=== PATIENT | male | born 1975 | race American Indian/Alaskan Native ===

== ENCOUNTER 2019-02-27 08:07 | Inpatient (IN) | payer SELFPAY ==
[2019-02-27] MEDS ORDERED: NACL 0.9% 1000 ML 1,000 ML ONE (08:13)
[2019-02-27] MEDS ORDERED: ZOFRAN ONE (08:26)
[2019-02-27] MEDS ORDERED: VITAMIN B-1 100 MG, FOLVITE 1 MG, INFUVITE 10 ML in NACL 0.9% 1000 ML 1,000 ML IV ONE (08:35)
[2019-02-27 08:38] LABS: Basophils % (Auto) 0.8 % (0.0-1.8); Eosinophils % (Auto) 0.2 % (0.0-4.3); Hematocrit 38.1 % (35.5-45.6); Lymphocytes # (Auto) 1.3 K/mm3 (1.2-5.4); Lymphocytes % (Auto) 42.1 % (13.4-35.0); Mean Corpuscular HGB Conc 34 % (32-34); Mean Corpuscular Volume 85 fl (84-94); Monocytes # (Auto) 0.3 K/mm3 (0.0-0.8); Platelet Count 199 K/mm3 (140-440); Red Cell Distribution Width 15.6 % (13.2-15.2)
[2019-02-27] MEDS ORDERED: ZOFRAN IV ONE ×2 (08:42→10:23)
[2019-02-27 08:49] LABS: INR 1.11 (0.87-1.13); Partial Thromboplastin Time 28.6 Sec. (24.2-36.6)
--- NOTE | 2019-02-27 08:55 | XRay Report ---
PORTABLE CHEST INDICATION: Chest pain. COMPARISON: 03/26/2009 FINDINGS: Portable, frontal chest radiograph suggests slightly poorer inspiration with mild exaggerated cardiomediastinal silhouette/possible mild cardiomegaly. Pulmonary arterial hypertension not excluded. Right hemidiaphragm approximately 3 cm higher than the left. No pleural effusions or CHF. Mild bony degenerative changes. EKG leads. CONCLUSION: No acute chest process with few other findings, as described. Please correlate. Thank you for the opportunity to participate in this patient's care.
[2019-02-27 09:01] LABS: BUN/Creatinine Ratio 8; Blood Urea Nitrogen 7 mg/dL (9-20); Calcium 8.1 mg/dL (8.4-10.2); Hemolysis Index 6
[2019-02-27 09:02] LABS: Creatine Kinase MB 4.1 ng/mL (0.0-4.0)
[2019-02-27 09:06] LABS: Free T4 (Free Thyroxine) 0.89 ng/dL (0.76-1.46)
[2019-02-27] MEDS ORDERED: K-DUR PO ONE ×2 (10:15→21:00)
--- NOTE | 2019-02-27 10:49 | History and Physical Report ---
History of Present Illness Date of examination: 02/27/19 Medications and Allergies Allergies Allergy/AdvReac Type Severity Reaction Status Date / Time No Known Allergies Allergy Unverified 02/27/19 08:39 Active Meds: Active Medications Thiamine HCl 100 mg/ Folic Acid 1 mg/ Multivitamins/Minerals 10 ml/ Sodium Chloride 1,011.2 mls @ 250 mls/hr IV ONCE ONE Stop: 02/27/19 12:37 Last Admin: 02/27/19 09:13 Dose: 250 mls/hr Documented by: Exam - Constitutional Vitals: Temp Pulse Resp BP Pulse Ox 98.2 F 100 H 18 130/92 100 02/27/19 08:47 02/27/19 10:01 02/27/19 10:01 02/27/19 10:01 02/27/19 10:01 Results - Labs CBC & Chem 7: 02/27/19 08:26 02/27/19 08:26 Labs: Abnormal lab results 02/27/19 02/27/19 02/27/19 Range/Units 08:26 08:26 08:26 WBC 3.0 L (4.5-11.0) K/mm3 RDW 15.6 H (13.2-15.2) % Lymph % (Auto) 42.1 H (13.4-35.0) % [place] % (Auto) 9.0 H (0.0-7.3) % Seg Neutrophils # 1.5 L (1.8-7.7) K/mm3 PT 15.0 H (12.2-14.9) Sec. D-Dimer 1208.94 H (0-234) ng/mlDDU Sodium 148 H (137-145) mmol/L Potassium 3.1 L (3.6-5.0) mmol/L Chloride 107.3 H (98-107) mmol/L BUN 7 L (9-20) mg/dL Glucose 200 H (75-100) mg/dL Calcium 8.1 L (8.4-10.2) mg/dL Total Creatine Kinase (55-170) units/L CK-MB (CK-2) (0.0-4.0) ng/mL TSH (0.270-4.200) mlU/mL Plasma/Serum Alcohol (0-0.07) % 0402/27/19 02/27/19 Range/Units 08:26 08:26 08:26 WBC (4.5-11.0) K/mm3 RDW (13.2-15.2) % Lymph % (Auto) (13.4-35.0) % [place] % (Auto) (0.0-7.3) % Seg Neutrophils # (1.8-7.7) K/mm3 PT (12.2-14.9) Sec. D-Dimer (0-234) ng/mlDDU Sodium (137-145) mmol/L Potassium (3.6-5.0) mmol/L Chloride (98-107) mmol/L BUN (9-20) mg/dL Glucose (75-100) mg/dL Calcium (8.4-10.2) mg/dL Total Creatine Kinase 522 H (55-170) units/L CK-MB (CK-2) 4.1 H (0.0-4.0) ng/mL TSH 0.236 L (0.270-4.200) mlU/mL Plasma/Serum Alcohol 0.33 H (0-0.07) %
--- NOTE | 2019-02-27 11:40 | Emergency Department Report ---
ED Palpitations HPI - General Chief Complaint: Chest Pain Stated Complaint: CHEST PAIN Time Seen by Provider: 02/27/19 08:16 Source: EMS Mode of arrival: Stretcher Limitations: No Limitations - History of Present Illness Initial Comments: This is a 43 year old man who is transported via EMS found to have a heart rate of 180-190. He was given intranasal morphine and a nitroglycerin". He was not hypotensive in the field. He arrived with the continued tachycardia. The patient states "everything is wrong with me". He admits alcohol abuse and habitual use. He does not specifically state a history of cardiopulmonary disease or diabetes. He is a poor historian in general. He can tell me that he has not experienced a rapid heart rhythm such as he is today. He states the problem began this a.m. He complains of midsternal chest pain which does not radiate. It does not appear to be obviously pleuritic. He is not coughing. He is also not providing much history. He doesn't answer to the affirmative regarding fever or chills. He does admit persistent nausea. MD Complaint: rapid heart beat, "heart racing" - Related Data Allergies Allergy/AdvReac Type Severity Reaction Status Date / Time No Known Allergies Allergy Unverified 02/27/19 08:39 ED Review of Systems ROS: Stated complaint: CHEST PAIN Other details as noted in HPI Comment: Unobtainable due to pts medical conditions (limited probably secondary to alcohol intoxication) ED Past Medical Hx - Past Medical History Hx Hypertension: Yes - Surgical History Past Surgical History?: Yes Additional Surgical History: Bilateral foot - Social History Smoking Status: Current Every Day Smoker Substance Use Type: Alcohol ED Physical Exam - General Limitations: Altered Mental Status General appearance: alert, anxious, obese - Head Head exam: Present: atraumatic, normocephalic - Eye Eye exam: Present: normal appearance. Absent: scleral icterus - ENT ENT exam: Present: mucous membranes moist - Neck Neck exam: Present: normal inspection. Absent: tenderness, meningismus - Respiratory Respiratory exam: Present: normal lung sounds bilaterally. Absent: respiratory distress - Cardiovascular Cardiovascular Exam: Present: regular rate, tachycardia. Absent: systolic murmur, diastolic murmur, rubs, gallop - GI/Abdominal GI/Abdominal exam: Present: soft, normal bowel sounds. Absent: distended, tenderness, guarding, rebound, rigid - Rectal Rectal exam: Present: deferred - Extremities Exam Extremities exam: Present: normal inspection. Absent: calf tenderness - Back Exam Back exam: Present: normal inspection. Absent: CVA tenderness (R), CVA tenderness (L) - Neurological Exam Neurological exam: Present: alert, altered (somewhat but oriented), oriented X3, CN II-XII intact. Absent: motor sensory deficit - Psychiatric Psychiatric exam: Present: normal affect, anxious - Skin Skin exam: Present: warm, dry, intact, normal color. Absent: rash ED Course Vital Signs 02/27/19 02/27/19 02/27/19 08:07 08:16 08:31 Temperature Pulse Rate 180 H 112 H 112 H Respiratory 22 22 Rate Blood Pressure 80/62 Blood Pressure 118/82 [Left] O2 Sat by Pulse 97 100 Oximetry 02/27/19 02/27/19 02/27/19 08:47 10:01 10:54 Temperature 98.2 F Pulse Rate 112 H 100 H 94 H Respiratory 22 18 20 Rate Blood Pressure Blood Pressure 128/89 130/92 139/83 [Left] O2 Sat by Pulse 100 100 98 Oximetry - Reevaluation(s) Reevaluation #1: On arrival patient's blood pressure was in the 80s systolic. He was given 6 mg adenosine. This promptly terminated his super ventricular tachycardia. He ultimately stated that his chest pain had improved. He had persistent nausea and was given 2 doses of Zofran. He was found to be hypokalemic. He was found to have a significant elevated d-dimer. He was sent for a CT of the chest. This was read by the radiologist as within normal limits, no PE, no infiltrates, no evidence of congestive heart failure. 02/27/19 11:50 ED Medical Decision Making - Lab Data Result diagrams: 02/27/19 08:26 02/27/19 08:26 Laboratory Results - last 24 hr 02/27/19 02/27/19 02/27/19 08:26 08:26 08:26 WBC 3.0 L RBC 4.50 Hgb 13.0 Hct 38.1 MCV 85 MCH 29 MCHC 34 RDW 15.6 H Plt Count 199 Lymph % (Auto) 42.1 H [place] % (Auto) 9.0 H Eos % (Auto) 0.2 Baso % (Auto) 0.8 Lymph # 1.3 [place] # 0.3 Eos # 0.0 Baso # 0.0 Seg Neutrophils % 47.9 Seg Neutrophils # 1.5 L PT 15.0 H INR 1.11 APTT 28.6 D-Dimer 1208.94 H Sodium 148 H Potassium 3.1 L Chloride 107.3 H Carbon Dioxide 28 Anion Gap 16 BUN 7 L Creatinine 0.9 Estimated GFR > 60 BUN/Creatinine Ratio 8 Glucose 200 H Calcium 8.1 L Magnesium Total Creatine Kinase CK-MB (CK-2) CK-MB (CK-2) Rel Index Troponin T < 0.010 NT-Pro-B Natriuret Pep Lipase 32 TSH Free T4 Plasma/Serum Alcohol 02/27/19 02/27/19 02/27/19 08:26 08:26 08:26 WBC RBC Hgb Hct MCV MCH MCHC RDW Plt Count Lymph % (Auto) [place] % (Auto) Eos % (Auto) Baso % (Auto) Lymph # [place] # Eos # Baso # Seg Neutrophils % Seg Neutrophils # PT INR APTT D-Dimer Sodium Potassium Chloride Carbon Dioxide Anion Gap BUN Creatinine Estimated GFR BUN/Creatinine Ratio Glucose Calcium Magnesium 1.80 Total Creatine Kinase 522 H CK-MB (CK-2) 4.1 H CK-MB (CK-2) Rel Index 0.7 Troponin T NT-Pro-B Natriuret Pep < 5 Lipase TSH 0.236 L Free T4 0.89 Plasma/Serum Alcohol 0.33 H Laboratory Results - last 24 hr 02/27/19 02/27/19 02/27/19 08:26 08:26 08:26 WBC 3.0 L RBC 4.50 Hgb 13.0 Hct 38.1 MCV 85 MCH 29 MCHC 34 RDW 15.6 H Plt Count 199 Lymph % (Auto) 42.1 H [place] % (Auto) 9.0 H Eos % (Auto) 0.2 Baso % (Auto) 0.8 Lymph # 1.3 [place] # 0.3 Eos # 0.0 Baso # 0.0 Seg Neutrophils % 47.9 Seg Neutrophils # 1.5 L PT 15.0 H INR 1.11 APTT 28.6 D-Dimer 1208.94 H Sodium 148 H Potassium 3.1 L Chloride 107.3 H Carbon Dioxide 28 Anion Gap 16 BUN 7 L Creatinine 0.9 Estimated GFR > 60 BUN/Creatinine Ratio 8 Glucose 200 H Calcium 8.1 L Magnesium Total Creatine Kinase CK-MB (CK-2) CK-MB (CK-2) Rel Index Troponin T < 0.010 NT-Pro-B Natriuret Pep Lipase 32 TSH Free T4 Plasma/Serum Alcohol 02/27/19 02/27/19 02/27/19 08:26 08:26 08:26 WBC RBC Hgb Hct MCV MCH MCHC RDW Plt Count Lymph % (Auto) [place] % (Auto) Eos % (Auto) Baso % (Auto) Lymph # [place] # Eos # Baso # Seg Neutrophils % Seg Neutrophils # PT INR APTT D-Dimer Sodium Potassium Chloride Carbon Dioxide Anion Gap BUN Creatinine Estimated GFR BUN/Creatinine Ratio Glucose Calcium Magnesium 1.80 Total Creatine Kinase 522 H CK-MB (CK-2) 4.1 H CK-MB (CK-2) Rel Index 0.7 Troponin T NT-Pro-B Natriuret Pep < 5 Lipase TSH 0.236 L Free T4 0.89 Plasma/Serum Alcohol 0.33 H - EKG Data -: EKG Interpreted by [place] EKG shows normal: sinus rhythm Rate: tachycardia - EKG Data Interpretation: other (initial monitor strip was SVT over 180. After cardioversion left axis deviation and poor R-wave progression, no acute ischemic changes sinus rhythm) Critical Care Time: Yes Critical care time in (mins) excluding proc time.: 60 Critical care attestation.: If time is entered above; I have spent that time in minutes in the direct care of this critically ill patient, excluding procedure time. ED Disposition Clinical Impression: SVT (supraventricular tachycardia), Alcohol abuse, Hypokalemia, Elevated d- dimer, Low TSH level Chest pain Qualifiers: Chest pain type: unspecified Qualified Code(s): R07.9 - Chest pain, unspecified Leukopenia Qualifiers: Leukopenia type: other Qualified Code(s): D72.818 - Other decreased white blood cell count Disposition: 09 OP ADMIT IP TO THIS HOSP Is pt being admited?: Yes Does the pt Need Aspirin: Yes Condition: Stable Instructions: Chest Pain (ED) Referrals: CHERYL VASQUES MD [Primary Care Provider] - 3-5 Days Time of Disposition: 11:55
--- NOTE | 2019-02-27 11:53 | Cat Scan Report ---
CTA CHEST INDICATION: Chest pain, elevated d-dimer. COMPARISON: 06/30/[address] FINDINGS: Chest CTA performed following intravenous administration of 100 cc of Omnipaque 350. Rotational MIP's also obtained. Mild cardiomegaly may now be present. No effusions. No aortic aneurysm or dissection, to the extent assessed, though aortic luminal opacification suboptimal. Mild pulmonary arterial hypertension. No definite focal suspicious pulmonary arterial filling defects, to the extent assessed. Patent central airway. No size significant adenopathy. Normal imaged thyroid. Clear lungs except for stable 5 mm postinflammatory noncalcified right midlung fissural density peripherally, axial series 2, image 71, for which no further followup needed. Nonspecific distal esophageal mild wall prominence/thickening, not excluded for gastroesophageal reflux and/or hiatal hernia, amongst others. Right hemidiaphragm slightly higher than the left. Imaged upper abdomen demonstrates left hepatic lobe tip extending into the left upper quadrant. No other significant abnormality. Multilevel thoracic spine degenerative changes as spurring and slight vacuum disc phenomenon inferiorly. CONCLUSION: No acute chest CT abnormality with few incidental findings, including pulmonary arterial hypertension and new mild cardiomegaly since 2008, as described. Please correlate. Thank you for the opportunity to participate in this patient's care.
[2019-02-27] MEDS ORDERED: ASPIRIN PO ONE (11:56)
[2019-02-27] MEDS ORDERED: ATIVAN IV PRN (12:04)
[2019-02-27] MEDS ORDERED: ASPIRIN ONE (12:33)
[2019-02-27] MEDS ORDERED: ATIVAN ONE (12:49)
[2019-02-27] MEDS: ATIVAN IV PRN ×2 (12:51→18:22)
[2019-02-27 12:59] LABS: Mucus,Urine FEW /HPF
[2019-02-27 13:02] LABS: Bilirubin,Urine Negative (Negative); Color,Urine Straw (Yellow)
[2019-02-27 13:03] LABS: Blood,Urine Negative (Negative); Urobilinogen,Urine < 2.0 mg/dL (<2.0)
[2019-02-27 13:20] LABS: Amphetamine Screen,Urine PRESUMPTIVE NEGATIVE; Benzodiazepines Screen,Urine PRESUMPTIVE NEGATIVE; Cannabinoid Screen,Urine PRESUMPTIVE NEGATIVE; Cocaine Screen,Urine PRESUMPTIVE NEGATIVE; Methadone Screen,Urine PRESUMPTIVE NEGATIVE
[2019-02-27 13:36] LABS: Opiate Screen,Urine PRESUMPTIVE POSITIVE
[2019-02-27] MEDS ORDERED: ZOFRAN IV PRN (17:49)
[2019-02-27] MEDS: DILAUDID IV PRN ×2 (18:23→21:43)
[2019-02-27] MEDS ORDERED: PHENERGAN PR PRN (20:14)
[2019-02-27] MEDS ORDERED: TYLENOL PO PRN (20:14)
[2019-02-27] MEDS ORDERED: NON-FORMULARY (Amlodipine Besylate [Norvasc] 2.5 MG) PO SCH (20:30)
--- NOTE | 2019-02-27 20:30 | Event Note ---
Date: 02/27/19 See dictated history and physical in the reports Severe dehydration Hypokalemia EtOH dependence Supraventricular tachycardia versus sinus tachycardia
[2019-02-27] MEDS ORDERED: CALCIUM GLUCONATE 2,000 MG in NACL 0.9% 100 ML IV ONE (20:41)
--- NOTE | 2019-02-27 21:01 | History and Physical Report ---
CHIEF COMPLAINT: 1. Palpitations. 2. Dehydration. 3. Binge drinking for 1 week. HISTORY OF PRESENT ILLNESS: A 43-year-old male comes in for severe palpitations and dehydration. The patient called EMS and that his heart rate was in the 180-190s. The patient has been binge drinking for the last one week about a bottle of vodka, which is of 750 mL every day. The patient apparently did binge drinking 2-3 years ago. Does not drink on a regular basis. His problem is binge drinking. Also, midsternal chest pain. More so on taking a deep breath. Had some nausea. No vomiting. Epigastric discomfort present. No shortness of breath. Chest pain is about 4 on a 1-10 scale. More in the epigastric and lower sternal region. No diaphoresis. Palpitations present. PAST MEDICAL HISTORY: Significant for hypertension. PAST SURGICAL HISTORY: Bilateral foot surgery. SOCIAL HISTORY: Smokes every day, pack a day. Alcohol, he does binge drinking. Has been drinking for one week about a bottle of vodka. Last binge drinking episode was 2 years ago. FAMILY HISTORY: Hypertension. REVIEW OF SYSTEMS: Significant for feeling weak, dehydrated, palpitations, epigastric and lower sternal chest pain. No shortness of breath. Nausea present. No vomiting. Otherwise, review of systems negative. PHYSICAL EXAMINATION: VITAL SIGNS: On examination, initially his heart rate was 180 per minute, respiratory rate was 22, sats were 88%, initial blood pressure was 80/62, improved to 118/82. Heart rate also improved to 112 during my examination. HEENT: Unremarkable. Pupils equal and reactive. NECK: Supple, no lymphadenopathy, no thyromegaly. LUNGS: Clear to auscultation and percussion. Good air entry. CARDIOVASCULAR: S1, S2 heard. No gallop, no murmur, no rub. Apical impulse in left fifth intercostal space and midclavicular line. ABDOMEN: Soft and benign. No hepatosplenomegaly. No guarding, no rigidity. Hernial orifices are normal. Bowel sounds are normal. EXTREMITIES: Good pedal pulses. No pedal edema. CENTRAL NERVOUS SYSTEM: Alert and oriented x 4, nonfocal exam. LABORATORY DATA: Significant for a white count of 3000, hemoglobin of 13, hematocrit of 38.1, platelet count of 199,000. D-dimer 1208, INR is 1.11. Protime is 15. Sodium is 148, potassium is 3.1, BUN and creatinine is 7 and 0.9. Total CK is 522, CK-MB is 4.1. TSH is 0.236, free T4 is 0.89. Drug screen is positive for opiates. Plasma alcohol is 0.33. EKG shows sinus tachycardia, heart rate of 160 per minute. Chest CTA was negative. Chest x-ray, no acute findings. ASSESSMENT AND PLAN: 1. Chest pain, rule out myocardial infarction, chest pain protocol. I am more in favor of an acute gastritis secondary to binge drinking. We will get Lexiscan because of his age and because of the risk factors. 2. Hypotension, should correct with IV fluids. Binge drinking may be the cause of his hypotension. 3. Supraventricular tachycardia versus sinus tachycardia. I am more in favor of sinus tachycardia secondary to hypotension, dehydration and fluid depletion. IV fluids for now. 4. Hypertension. We will start the blood pressure medicines once the blood pressure is stable. 5. Hyponatremia. IV fluids for now. 6. Hypokalemia. IV fluids for now. 7. Magnesium deficiency. IV magnesium. 8. ETOH dependence. [facility] protocol initiated. 9. Acute gastritis, famotidine 20 mg IV b.i.d. initiated. 10. Deep venous thrombosis prophylaxis, Lovenox 40 mg subcutaneous daily. JOB# [id number] VSM/NTS
[2019-02-27] MEDS: ZOFRAN IV PRN (21:42)
[2019-02-27] MEDS: D5NS 1,000 ML IV SCH (21:46)
[2019-02-27] MEDS ORDERED: NORVASC PO SCH (22:00)
[2019-02-27] MEDS ORDERED: MAGNESIUM SULFATE 2GM/50ML 2 GM/50 ML BAG IV ONE (22:00)
[2019-02-28] MEDS: LOVENOX SUB-Q SCH ×2 (00:08→21:20)
[2019-02-28] MEDS: PEPCID IV SCH ×3 (00:08→21:20)
[2019-02-28] MEDS: SODIUM CHLORIDE FLUSH SYRINGE 10 ML IV SCH (00:10)
[2019-02-28] MEDS: ZESTRIL PO SCH ×3 (00:27→11:09)
[2019-02-28] MEDS: LOPRESSOR PO SCH ×5 (00:27→21:20)
[2019-02-28] MEDS: REGLAN IV PRN ×2 (00:41→12:10)
[2019-02-28] MEDS: APRESOLINE IV PRN ×4 (04:34→21:21)
[2019-02-28] MEDS: ZOFRAN IV PRN ×3 (04:35→21:20)
[2019-02-28 04:39] LABS: Basophils % (Auto) 0.5 % (0.0-1.8); Eosinophils % (Auto) 0.4 % (0.0-4.3); Hematocrit 38.4 % (35.5-45.6); Hemoglobin 12.7 gm/dl (11.8-15.2); Lymphocytes # (Auto) 1.2 K/mm3 (1.2-5.4); Lymphocytes % (Auto) 43.4 % (13.4-35.0); Mean Corpuscular HGB Conc 33 % (32-34); Mean Corpuscular Volume 85 fl (84-94); Monocytes # (Auto) 0.3 K/mm3 (0.0-0.8); Monocytes % (Auto) 11.2 % (0.0-7.3); Platelet Count 196 K/mm3 (140-440); Red Cell Distribution Width 15.5 % (13.2-15.2)
[2019-02-28 05:06] LABS: Alanine Aminotransferase 60 units/L (7-56); BUN/Creatinine Ratio 11; Blood Urea Nitrogen 10 mg/dL (9-20); Calcium 8.8 mg/dL (8.4-10.2); Hemolysis Index 7
[2019-02-28] MEDS ORDERED: NORVASC PO PRN (05:15)
[2019-02-28] MEDS: ATIVAN IV PRN ×3 (07:34→16:40)
[2019-02-28] MEDS ORDERED: LEXISCAN IV ONE ×2 (08:03→08:14)
[2019-02-28] MEDS: DILAUDID IV PRN ×2 (09:49→21:22)
--- NOTE | 2019-02-28 13:39 | Progress Note ---
Assessment and Plan Assessment and plan: --Alcoholic intoxication; present on admission; Continue supportive care, strongly advised to quit alcohol --Alcohol withdrawal symptoms; CIWA protocol Patient needs alcohol rehabilitation --Atypical chest pain; continue current cardiac medications Stress test on 03/02/2019 is stable --DVT prophylaxis; Lovenox --Morbid obesity; BMI 41.8, advised weight reduction and medically stable Closely monitor the patient and adjust the management as needed Plan of care reviewed with the patient and his nurse History Interval history: Patient seen and examined medical records reviewed Admitted with atypical chest pain and alcoholic intoxication Stress test was rescheduled as patient is started having withdrawal symptoms Patient complaints of generalized weakness, and tremulousness On CIWA protocol He denies chest pain or shortness of breath Vital signs reviewed Hospitalist Physical - Constitutional Vitals: Temp Pulse Resp BP Pulse Ox 98.2 F 81 20 178/110 95 02/28/19 09:50 02/28/19 09:56 02/28/19 09:58 02/28/19 11:08 02/28/19 09:50 General appearance: Present: no acute distress, other (tremulousness) - EENT Eyes: Present: PERRL, EOM intact - Neck Neck: Present: supple, normal ROM - Respiratory Respiratory effort: normal Respiratory: bilateral: diminished, negative: rales, rhonchi, wheezing - Cardiovascular Rhythm: regular Heart Sounds: Present: S1 & S2 - Extremities Extremities: no ischemia Extremity abnormal: edema - Abdominal General gastrointestinal: soft, non-tender, non-distended, normal bowel sounds - Integumentary Integumentary: Present: clear, warm - Psychiatric Psychiatric: appropriate mood/affect, cooperative - Neurologic Neurologic: moves all extremities Results - Labs CBC & Chem 7: 02/28/19 03:30 02/28/19 03:30 Labs: Laboratory Last Values WBC 2.7 K/mm3 (4.5-11.0) L 02/28/19 03:30 RBC 4.50 M/mm3 (3.65-5.03) 02/28/19 03:30 Hgb 12.7 gm/dl (11.8-15.2) 02/28/19 03:30 Hct 38.4 % (35.5-45.6) 02/28/19 03:30 MCV 85 fl (84-94) 02/28/19 03:30 MCH 28 pg (28-32) 02/28/19 03:30 MCHC 33 % (32-34) 02/28/19 03:30 RDW 15.5 % (13.2-15.2) H 02/28/19 03:30 Plt Count 196 K/mm3 (140-440) 02/28/19 03:30 Lymph % (Auto) 43.4 % (13.4-35.0) H 02/28/19 03:30 [place] % (Auto) 11.2 % (0.0-7.3) H 02/28/19 03:30 Eos % (Auto) 0.4 % (0.0-4.3) 02/28/19 03:30 Baso % (Auto) 0.5 % (0.0-1.8) 02/28/19 03:30 Lymph # 1.2 K/mm3 (1.2-5.4) 02/28/19 03:30 [place] # 0.3 K/mm3 (0.0-0.8) 02/28/19 03:30 Eos # 0.0 K/mm3 (0.0-0.4) 02/28/19 03:30 Baso # 0.0 K/mm3 (0.0-0.1) 02/28/19 03:30 Seg Neutrophils % 44.5 % (40.0-70.0) 02/28/19 03:30 Seg Neutrophils # 1.2 K/mm3 (1.8-7.7) L 02/28/19 03:30 PT 15.0 Sec. (12.2-14.9) H 02/27/19 08:26 INR 1.11 (0.87-1.13) 02/27/19 08:26 APTT 28.6 Sec. (24.2-36.6) 02/27/19 08:26 D-Dimer 1208.94 ng/mlDDU (0-234) H 02/27/19 08:26 Sodium 144 mmol/L (137-145) 02/28/19 03:30 Potassium 4.0 mmol/L (3.6-5.0) D 02/28/19 03:30 Chloride 104.0 mmol/L (98-107) 02/28/19 03:30 Carbon Dioxide 27 mmol/L (22-30) 02/28/19 03:30 Anion Gap 17 mmol/L 02/28/19 03:30 BUN 10 mg/dL (9-20) 02/28/19 03:30 Creatinine 0.9 mg/dL (0.8-1.5) 02/28/19 03:30 Estimated GFR > 60 ml/min 02/28/19 03:30 BUN/Creatinine Ratio 11 % 02/28/19 03:30 Glucose 116 mg/dL (75-100) H 02/28/19 03:30 Hemoglobin A1c 5.5 % (4-6) 02/27/19 20:24 Calcium 8.8 mg/dL (8.4-10.2) 02/28/19 03:30 Magnesium 1.80 mg/dL (1.7-2.3) 02/27/19 14:40 Total Bilirubin 0.50 mg/dL (0.1-1.2) 02/28/19 03:30 AST 35 units/L (5-40) 02/28/19 03:30 ALT 60 units/L (7-56) H 02/28/19 03:30 Alkaline Phosphatase 64 units/L (35-129) 02/28/19 03:30 Total Creatine Kinase 522 units/L (55-170) H 02/27/19 08:26 CK-MB (CK-2) 4.1 ng/mL (0.0-4.0) H 02/27/19 08:26 CK-MB (CK-2) Rel Index 0.7 (0-4) 02/27/19 08:26 Troponin T < 0.010 ng/mL (0.00-0.029) 02/28/19 03:30 NT-Pro-B Natriuret Pep < 5 pg/mL (0-450) 02/27/19 08:26 Total Protein 6.4 g/dL (6.3-8.2) 02/28/19 03:30 Albumin 4.0 g/dL (3.9-5) 02/28/19 03:30 Albumin/Globulin Ratio 1.7 % 02/28/19 03:30 Lipase 32 units/L (13-60) 02/27/19 08:26 TSH 0.236 mlU/mL (0.270-4.200) L 02/27/19 08:26 Free T4 0.89 ng/dL (0.76-1.46) 02/27/19 08:26 Urine Color Straw (Yellow) 02/27/19 Unknown Urine Turbidity Clear (Clear) 02/27/19 Unknown Urine pH 7.0 (5.0-7.0) 02/27/19 Unknown Ur Specific [place] 1.005 (1.003-1.030) 02/27/19 Unknown Urine Protein 30 mg/dl mg/dL (Negative) 02/27/19 Unknown Urine Glucose (UA) Negative mg/dL (Negative) 02/27/19 Unknown Urine Ketones Negative mg/dL (Negative) 02/27/19 Unknown Urine Blood Negative (Negative) 02/27/19 Unknown Urine Nitrite Negative (Negative) 02/27/19 Unknown Ur Reducing Substances Not Reportable 02/27/19 Unknown Urine Bilirubin Negative (Negative) 02/27/19 Unknown Urine Ictotest Not Reportable 02/27/19 Unknown Urine Urobilinogen < 2.0 mg/dL (<2.0) 02/27/19 Unknown Ur Leukocyte Esterase Negative (Negative) 02/27/19 Unknown Urine WBC (Auto) 1.0 /HPF (0.0-6.0) 02/27/19 Unknown Urine RBC (Auto) 2.0 /HPF (0.0-6.0) 02/27/19 Unknown Urine Mucus Few /HPF 02/27/19 Unknown Urine Opiates Screen Presumptive positive 02/27/19 Unknown Urine Methadone Screen Presumptive negative 02/27/19 Unknown Ur Barbiturates Screen Presumptive negative 02/27/19 Unknown Ur Phencyclidine Scrn Presumptive negative 02/27/19 Unknown Ur Amphetamines Screen Presumptive negative 02/27/19 Unknown U Benzodiazepines Scrn Presumptive negative 02/27/19 Unknown Urine Cocaine Screen Presumptive negative 02/27/19 Unknown U Marijuana (THC) Screen Presumptive negative 02/27/19 Unknown Drugs of Abuse Note Disclamer 02/27/19 Unknown Plasma/Serum Alcohol 0.33 % (0-0.07) H 02/27/19 08:26 Active Medications - Current Medications Current Medications: Generic Name Dose Route Start Last Admin Trade Name Freq PRN Reason Stop Dose Admin Acetaminophen 650 mg 02/27/19 20:14 Tylenol PO Q4H PRN Pain MILD(1-3)/Fever >100.5/LINDSAY Amlodipine Besylate 10 mg 02/28/19 05:15 Norvasc PO QDAY PRN Hypertension Enoxaparin Sodium 40 mg 02/27/19 22:00 02/28/19 00:08 Lovenox SUB-Q 40 mg QDAY@2200 ANDRESSA Administration Famotidine 20 mg 02/27/19 22:00 02/28/19 11:09 Pepcid IV 20 mg BID ANDRESSA Administration Hydralazine HCl 5 mg 02/28/19 03:21 02/28/19 11:20 Apresoline IV 5 mg Q6HR PRN Administration Hypertension Hydromorphone HCl 0.5 mg 02/27/19 17:48 02/28/19 09:49 Dilaudid IV 0.5 mg Q3H PRN Administration Pain , Severe (7-10) Dextrose/Sodium Chloride 1,000 mls @ 100 mls/hr 02/27/19 21:00 02/27/19 21:46 D5ns IV 100 mls/hr DIRECT ANDRESSA Administration Lisinopril 10 mg 02/27/19 21:00 02/28/19 11:09 Zestril PO 10 mg QDAY ANDRESSA Administration Lorazepam 1 mg 02/27/19 12:04 02/28/19 12:10 Ativan IV 1 mg Q1HR PRN Administration CIWA-Ar 8-15 Lorazepam 2 mg 02/27/19 12:04 Ativan IV Q15MIN PRN CIWA-Ar >25 Metoclopramide HCl 10 mg 02/27/19 20:14 02/28/19 12:10 Reglan IV 10 mg Q6H PRN Administration Nausea And Vomiting Metoprolol Tartrate 12.5 mg 02/27/19 22:00 02/28/19 11:08 Lopressor PO 12.5 mg BID ANDRESSA Administration Ondansetron HCl 4 mg 02/27/19 20:14 02/28/19 11:09 Zofran IV 4 mg Q8H PRN Administration Nausea And Vomiting Oxycodone/Acetaminophen 1 tab 02/27/19 20:14 Percocet 5/325 PO Q6H PRN Pain, Moderate (4-6) Promethazine HCl 25 mg 02/27/19 20:14 Phenergan [place] Q6H PRN N/V IF NPO AND NO IV ACCESS Sodium Chloride 10 ml 02/27/19 22:00 02/28/19 00:10 Sodium Chloride Flush Syringe 10 Ml IV 10 ml BID ANDRESSA Administration Sodium Chloride 10 ml 02/27/19 20:14 Sodium Chloride Flush Syringe 10 Ml IV PRN PRN LINE FLUSH
[2019-02-28] MEDS: D5NS 1,000 ML IV SCH (18:22)
[2019-02-28] MEDS: SODIUM CHLORIDE FLUSH SYRINGE 10 ML IV PRN ×2 (21:20→21:25)
[2019-03-01] MEDS: REGLAN IV PRN (00:39)
[2019-03-01] MEDS: ATIVAN IV PRN (00:39)
[2019-03-01] MEDS: PERCOCET 5/325 PO PRN ×2 (03:41→08:34)
[2019-03-01] MEDS: SODIUM CHLORIDE FLUSH SYRINGE 10 ML IV PRN (03:44)
[2019-03-01] MEDS: SODIUM CHLORIDE FLUSH SYRINGE 10 ML IV SCH ×2 (03:45→09:30)
[2019-03-01 08:05] VITALS: BP 185/111
[2019-03-01 09:00] LABS: BUN/Creatinine Ratio 10; Blood Urea Nitrogen 8 mg/dL (9-20); Calcium 8.7 mg/dL (8.4-10.2); Hemolysis Index 14
[2019-03-01] MEDS: ZESTRIL PO SCH (09:28)
[2019-03-01] MEDS: LOPRESSOR PO SCH (09:29)
[2019-03-01] MEDS: PEPCID IV SCH (09:30)
--- NOTE | 2019-03-01 11:24 | Consultation ---
History of Present Illness - Reason for Consult Consult date: 03/01/19 Reason for consult: Mental health Evaluation Requesting physician: VERNA EVANS - Chief Complaint Chief complaint: 'I have a lot going on" - History of Present Psychiatric Illness 43 y.o. AA male who presented to the ER for tachycardia and ETOH. Psychiatry was consulted to see the patient for ETOH. Today the patient is calm and cooperative during the assessment. He stated that he is dealing with life stressors with family that has caused him to be depressed. He stated that he is consuming more alcohol (etoh) than usual to self medicate. He acknowledged that he has a hx of alcohol abuse (etoh) for several years. He stated that he has always dealt with depression in the past. He denies ever being treated for depression. He denies any previous suicide attempts when asked. He rate his depression 5/10, with 10 being the worse. He denies SI/HI's and AVH's. He denies a poor appetite and erratic sleep. He would not confirm or deny recreational drug use. Medications and Allergies Allergies Allergy/AdvReac Type Severity Reaction Status Date / Time No Known Allergies Allergy Unverified 02/27/19 08:39 Home Medications Medication Instructions Recorded Confirmed Last Taken Type Amlodipine Besylate [Norvasc] 2.5 mg PO DAILY 02/27/19 02/27/19 02/27/19 07:00 History Lisinopril [Zestril TAB] 10 mg PO QDAY 02/27/19 02/27/19 02/27/19 07:00 History Active Meds: Active Medications Acetaminophen (Tylenol) 650 mg PO Q4H PRN PRN Reason: Pain MILD(1-3)/Fever >100.5/LINDSAY Amlodipine Besylate (Norvasc) 10 mg PO QDAY PRN PRN Reason: Hypertension Last Admin: 03/01/19 03:41 Dose: 10 mg Documented by: Enoxaparin Sodium (Lovenox) 40 mg SUB-Q QDAY@2200 [facility] Last Admin: 02/28/19 21:20 Dose: 40 mg Documented by: Famotidine (Pepcid) 20 mg IV BID [facility] Last Admin: 03/01/19 09:30 Dose: Not Given Documented by: Hydralazine HCl (Apresoline) 5 mg IV Q6HR PRN PRN Reason: Hypertension Last Admin: 02/28/19 21:21 Dose: 5 mg Documented by: Hydromorphone HCl (Dilaudid) 0.5 mg IV Q3H PRN PRN Reason: Pain , Severe (7-10) Last Admin: 02/28/19 21:22 Dose: 0.5 mg Documented by: Dextrose/Sodium Chloride (D5ns) 1,000 mls @ 100 mls/hr IV DIRECT [facility] Last Admin: 02/28/19 18:22 Dose: 100 mls/hr Documented by: Lisinopril (Zestril) 10 mg PO QDAY [facility] Last Admin: 03/01/19 09:28 Dose: 10 mg Documented by: Lorazepam (Ativan) 1 mg IV Q1HR PRN PRN Reason: CIWA-Ar 8-15 Last Admin: 03/01/19 00:39 Dose: 1 mg Documented by: Lorazepam (Ativan) 2 mg IV Q15MIN PRN PRN Reason: CIWA-Ar >25 Metoclopramide HCl (Reglan) 10 mg IV Q6H PRN PRN Reason: Nausea And Vomiting Last Admin: 03/01/19 00:39 Dose: 10 mg Documented by: Metoprolol Tartrate (Lopressor) 12.5 mg PO BID [facility] Last Admin: 03/01/19 09:29 Dose: 12.5 mg Documented by: Ondansetron HCl (Zofran) 4 mg IV Q8H PRN PRN Reason: Nausea And Vomiting Last Admin: 02/28/19 21:20 Dose: 4 mg Documented by: Oxycodone/Acetaminophen (Percocet 5/325) 1 tab PO Q6H PRN PRN Reason: Pain, Moderate (4-6) Last Admin: 03/01/19 08:34 Dose: 1 tab Documented by: Promethazine HCl (Phenergan) 25 mg AL Q6H PRN PRN Reason: N/V IF NPO AND NO IV ACCESS Sodium Chloride (Sodium Chloride Flush Syringe 10 Ml) 10 ml IV BID [facility] Last Admin: 03/01/19 09:30 Dose: 10 ml Documented by: Sodium Chloride (Sodium Chloride Flush Syringe 10 Ml) 10 ml IV PRN PRN PRN Reason: LINE FLUSH Last Admin: 03/01/19 03:44 Dose: 10 ml Documented by: Past psychiatric history - Past Medical History Past Medical History: hypertension Past Surgical History: No surgical history - past Psychiatric treatment and history psychiatric treatment history: Hx of Alcohol abuse. Denies a fam psy hx. - Social History Social history: Lives alone Mental Status Exam - Vital signs Last Vital Signs Temp 98.5 F 03/01/19 08:02 Pulse 84 03/01/19 09:29 Resp 18 03/01/19 08:02 BP 185/111 03/01/19 09:29 Pulse Ox 95 03/01/19 08:02 - Exam Narrative exam: MSE: Appearance: calm, cooperative Behavior: regular eye contact Speech: regular rate and tone Mood: "depressed" Affect: flat Thought Process: circumstantial Thought Content: denies SI/HI's and AVH's Motor Activity: ambulatory Cognition: A/O x3 Insight: fair Judgment: appropriate Results Result Diagrams: 02/28/19 03:30 03/01/19 07:11 Abnormal lab results 03/01/19 Range/Units 07:11 BUN 8 L (9-20) mg/dL All other labs normal. Assessment and Plan Assessment and plan: Impression: MDD. Alcohol Use DO. Today the patient calm and cooperative during the assessment. Positive for opiates. QTC 496. Mild tremors noted (etoh). Recommendation/Plan: Continue CIWA. The risk of QTC Prolongation outweigh the benefit of an SSRI. Talk therapy will be treatment for this patient at this time, Also, the patient denies SI's. Will follow up with the patient in 24 hours. Dispo: The patient can follow up with [facility] for psy/rehab services once discharged. Staffed with Dr Daniel Browning.
--- NOTE | 2019-03-01 11:30 | Progress Note ---
Assessment and Plan Assessment and plan: --Atypical chest pain; continue current cardiac medications Stress test on 03/02/2019 is stable --Alcohol withdrawal symptoms; [facility] protocol Patient needs alcohol rehabilitation --Alcoholic intoxication; present on admission; --Morbid obesity; BMI 41.8, advised weight reduction and medically stable --DVT prophylaxis; Lovenox Closely monitor the patient and adjust the management as needed Plan of care reviewed with the patient and his nurse History Interval history: Patient seen and examined medical records reviewed Patient feels that the, on CIUT protocol No tremulousness, no agitation or aggression Vital signs reviewed Stress test scheduled for tomorrow Patient has no IV access,will request IV team for midline or PICC line Hospitalist Physical - Constitutional Vitals: Temp Pulse Resp BP Pulse Ox 98.5 F 84 18 185/111 95 03/01/19 08:02 03/01/19 09:29 03/01/19 08:02 03/01/19 09:29 03/01/19 08:02 General appearance: Present: no acute distress, obese (morbidly obese) - EENT Eyes: Present: PERRL, EOM intact - Neck Neck: Present: supple, normal ROM - Respiratory Respiratory effort: normal Respiratory: negative: rales, rhonchi, wheezing - Cardiovascular Rhythm: regular Heart Sounds: Present: S1 & S2 - Extremities Extremities: no ischemia, No edema - Abdominal General gastrointestinal: soft, non-tender, non-distended, normal bowel sounds - Integumentary Integumentary: Present: clear, warm - Psychiatric Psychiatric: appropriate mood/affect, cooperative - Neurologic Neurologic: CNII-XII intact, moves all extremities Results - Labs CBC & Chem 7: 02/28/19 03:30 03/01/19 07:11 Labs: Laboratory Last Values WBC 2.7 K/mm3 (4.5-11.0) L 02/28/19 03:30 RBC 4.50 M/mm3 (3.65-5.03) 02/28/19 03:30 Hgb 12.7 gm/dl (11.8-15.2) 02/28/19 03:30 Hct 38.4 % (35.5-45.6) 02/28/19 03:30 MCV 85 fl (84-94) 02/28/19 03:30 MCH 28 pg (28-32) 02/28/19 03:30 MCHC 33 % (32-34) 02/28/19 03:30 RDW 15.5 % (13.2-15.2) H 02/28/19 03:30 Plt Count 196 K/mm3 (140-440) 02/28/19 03:30 Lymph % (Auto) 43.4 % (13.4-35.0) H 02/28/19 03:30 Clarke % (Auto) 11.2 % (0.0-7.3) H 02/28/19 03:30 Eos % (Auto) 0.4 % (0.0-4.3) 02/28/19 03:30 Baso % (Auto) 0.5 % (0.0-1.8) 02/28/19 03:30 Lymph # 1.2 K/mm3 (1.2-5.4) 02/28/19 03:30 Clarke # 0.3 K/mm3 (0.0-0.8) 02/28/19 03:30 Eos # 0.0 K/mm3 (0.0-0.4) 02/28/19 03:30 Baso # 0.0 K/mm3 (0.0-0.1) 02/28/19 03:30 Seg Neutrophils % 44.5 % (40.0-70.0) 02/28/19 03:30 Seg Neutrophils # 1.2 K/mm3 (1.8-7.7) L 02/28/19 03:30 PT 15.0 Sec. (12.2-14.9) H 02/27/19 08:26 INR 1.11 (0.87-1.13) 02/27/19 08:26 APTT 28.6 Sec. (24.2-36.6) 02/27/19 08:26 D-Dimer 1208.94 ng/mlDDU (0-234) H 02/27/19 08:26 Sodium 141 mmol/L (137-145) 03/01/19 07:11 Potassium 3.7 mmol/L (3.6-5.0) 03/01/19 07:11 Chloride 102.0 mmol/L (98-107) 03/01/19 07:11 Carbon Dioxide 24 mmol/L (22-30) 03/01/19 07:11 Anion Gap 19 mmol/L 03/01/19 07:11 BUN 8 mg/dL (9-20) L 03/01/19 07:11 Creatinine 0.8 mg/dL (0.8-1.5) 03/01/19 07:11 Estimated GFR > 60 ml/min 03/01/19 07:11 BUN/Creatinine Ratio 10 % 03/01/19 07:11 Glucose 98 mg/dL (75-100) 03/01/19 07:11 POC Glucose 102 (70-105) 03/01/19 00:14 Hemoglobin A1c 5.5 % (4-6) 02/27/19 20:24 Calcium 8.7 mg/dL (8.4-10.2) 03/01/19 07:11 Phosphorus 3.00 mg/dL (2.5-4.5) 03/01/19 07:11 Magnesium 1.80 mg/dL (1.7-2.3) 03/01/19 07:11 Total Bilirubin 0.50 mg/dL (0.1-1.2) 02/28/19 03:30 AST 35 units/L (5-40) 02/28/19 03:30 ALT 60 units/L (7-56) H 02/28/19 03:30 Alkaline Phosphatase 64 units/L (35-129) 02/28/19 03:30 Total Creatine Kinase 522 units/L (55-170) H 02/27/19 08:26 CK-MB (CK-2) 4.1 ng/mL (0.0-4.0) H 02/27/19 08:26 CK-MB (CK-2) Rel Index 0.7 (0-4) 02/27/19 08:26 Troponin T < 0.010 ng/mL (0.00-0.029) 02/28/19 03:30 NT-Pro-B Natriuret Pep < 5 pg/mL (0-450) 02/27/19 08:26 Total Protein 6.4 g/dL (6.3-8.2) 02/28/19 03:30 Albumin 4.0 g/dL (3.9-5) 02/28/19 03:30 Albumin/Globulin Ratio 1.7 % 02/28/19 03:30 Lipase 32 units/L (13-60) 02/27/19 08:26 TSH 0.236 mlU/mL (0.270-4.200) L 02/27/19 08:26 Free T4 0.89 ng/dL (0.76-1.46) 02/27/19 08:26 Urine Color Straw (Yellow) 02/27/19 Unknown Urine Turbidity Clear (Clear) 02/27/19 Unknown Urine pH 7.0 (5.0-7.0) 02/27/19 Unknown Ur Specific [place] 1.005 (1.003-1.030) 02/27/19 Unknown Urine Protein 30 mg/dl mg/dL (Negative) 02/27/19 Unknown Urine Glucose (UA) Negative mg/dL (Negative) 02/27/19 Unknown Urine Ketones Negative mg/dL (Negative) 02/27/19 Unknown Urine Blood Negative (Negative) 02/27/19 Unknown Urine Nitrite Negative (Negative) 02/27/19 Unknown Ur Reducing Substances Not Reportable 02/27/19 Unknown Urine Bilirubin Negative (Negative) 02/27/19 Unknown Urine Ictotest Not Reportable 02/27/19 Unknown Urine Urobilinogen < 2.0 mg/dL (<2.0) 02/27/19 Unknown Ur Leukocyte Esterase Negative (Negative) 02/27/19 Unknown Urine WBC (Auto) 1.0 /HPF (0.0-6.0) 02/27/19 Unknown Urine RBC (Auto) 2.0 /HPF (0.0-6.0) 02/27/19 Unknown Urine Mucus Few /HPF 02/27/19 Unknown Urine Opiates Screen Presumptive positive 02/27/19 Unknown Urine Methadone Screen Presumptive negative 02/27/19 Unknown Ur Barbiturates Screen Presumptive negative 02/27/19 Unknown Ur Phencyclidine Scrn Presumptive negative 02/27/19 Unknown Ur Amphetamines Screen Presumptive negative 02/27/19 Unknown U Benzodiazepines Scrn Presumptive negative 02/27/19 Unknown Urine Cocaine Screen Presumptive negative 02/27/19 Unknown U Marijuana (THC) Screen Presumptive negative 02/27/19 Unknown Drugs of Abuse Note Disclamer 02/27/19 Unknown Plasma/Serum Alcohol 0.33 % (0-0.07) H 02/27/19 08:26 Active Medications - Current Medications Current Medications: Generic Name Dose Route Start Last Admin Trade Name Freq PRN Reason Stop Dose Admin Acetaminophen 650 mg 02/27/19 20:14 Tylenol PO Q4H PRN Pain MILD(1-3)/Fever >100.5/LINDSAY Amlodipine Besylate 10 mg 02/28/19 05:15 03/01/19 03:41 Norvasc PO 10 mg QDAY PRN Administration Hypertension Enoxaparin Sodium 40 mg 02/27/19 22:00 02/28/19 21:20 Lovenox SUB-Q 40 mg QDAY@2200 ANDRESSA Administration Famotidine 20 mg 02/27/19 22:00 03/01/19 09:30 Pepcid IV Not Given BID ANDRESSA Hydralazine HCl 5 mg 02/28/19 03:21 02/28/19 21:21 Apresoline IV 5 mg Q6HR PRN Administration Hypertension Hydromorphone HCl 0.5 mg 02/27/19 17:48 02/28/19 21:22 Dilaudid IV 0.5 mg Q3H PRN Administration Pain , Severe (7-10) Dextrose/Sodium Chloride 1,000 mls @ 100 mls/hr 02/27/19 21:00 02/28/19 18:22 D5ns IV 100 mls/hr DIRECT ANDRESSA Administration Lisinopril 10 mg 02/27/19 21:00 03/01/19 09:28 Zestril PO 10 mg QDAY ANDRESSA Administration Lorazepam 1 mg 02/27/19 12:04 03/01/19 00:39 Ativan IV 1 mg Q1HR PRN Administration CIWA-Ar 8-15 Lorazepam 2 mg 02/27/19 12:04 Ativan IV Q15MIN PRN CIWA-Ar >25 Metoclopramide HCl 10 mg 02/27/19 20:14 03/01/19 00:39 Reglan IV 10 mg Q6H PRN Administration Nausea And Vomiting Metoprolol Tartrate 12.5 mg 02/27/19 22:00 03/01/19 09:29 Lopressor PO 12.5 mg BID ANDRESSA Administration Ondansetron HCl 4 mg 02/27/19 20:14 02/28/19 21:20 Zofran IV 4 mg Q8H PRN Administration Nausea And Vomiting Oxycodone/Acetaminophen 1 tab 02/27/19 20:14 03/01/19 08:34 Percocet 5/325 PO 1 tab Q6H PRN Administration Pain, Moderate (4-6) Promethazine HCl 25 mg 02/27/19 20:14 Phenergan [place] Q6H PRN N/V IF NPO AND NO IV ACCESS Sodium Chloride 10 ml 02/27/19 22:00 03/01/19 09:30 Sodium Chloride Flush Syringe 10 Ml IV 10 ml BID ANDRESSA Administration Sodium Chloride 10 ml 02/27/19 20:14 03/01/19 03:44 Sodium Chloride Flush Syringe 10 Ml IV 10 ml PRN PRN Administration LINE FLUSH
--- NOTE | 2019-03-01 18:00 | Discharge Summary ---
Providers - Providers Date of Admission: 02/27/19 11:56 Date of discharge: 03/01/19 Attending physician: ANIL ROYAL 02/27/19 20:26 Consult to Mental Health [CONS] Routine Reason For Exam: alcohol dependence Place consult to:: yes Notified:: kelly Phone number called:: [phone] Was contact made?: Yes If yes, spoke with:: ankit Time called:: 08:30 03/01/19 11:25 Midline [Consult to PICC Line RN] [CONS] Routine Reason For Exam: IV access Type Line:: Midline [facility] Reason for admission: palpitation altered level of consciousness/alcohol intoxication Condition: Stable Pertinent studies: CTA chest; no acute abnormality incidental findings, pulmonary arterial hypertension Mild cardiomegaly Chest x-ray; no acute abnormality noted Hospital course: 46-year-old morbidly obese -[place] male patient with significant past medical history of hypertension admitted through emergency room with severe dehydration and palpitations patient was binge drinking admitted to the hospital symptomatically managed Patient also complained of chest pain, stress test was ordered however patient had mild alcohol withdrawal symptoms, stress test rescheduled for 03/02/2019Saturday Patient is placed on CIWA protocol, symptomatically managed, Counseled the importance of adhering to the treatment plan Also strongly advised to quit alcohol intake, Patient was evaluated by psych for alcohol rehabilitation at which time patient complains of depression, denied suicidal thoughts or ideation, ID started antidepressive medications, Patient denied any depression or suicidal thought when I evaluated However today patient did not want to stay in the hospital and left the room and walked out of the hospital, nurse charge nurse, security tried to trace the patient, however could not find him, patient absconded from the hospital., Please refer to medical records for details Discharge diagnosis; --Atypical chest pain; continue current cardiac medications Stress test on 03/02/2019 is stable --Alcohol withdrawal symptoms; CIWA protocol Patient needs alcohol rehabilitation --Metabolic encephalopathy --Alcoholic intoxication; present on admission; --Morbid obesity; BMI 41.8, advised weight reduction and medically stable --DVT prophylaxis; Lovenox Patient left the hospital AMA Disposition: DC-07 LEFT AGAINST MED ADVICE Time spent for discharge: 32 min Core Measure Documentation - Palliative Care Palliative Care/ Comfort Measures: Not Applicable - Core Measures Any of the following diagnoses?: none Exam - Constitutional Vitals: Temp Pulse Resp BP Pulse Ox 98.5 F 84 19 185/111 98 03/01/19 08:02 03/01/19 09:29 03/01/19 09:00 03/01/19 09:29 03/01/19 09:00 General appearance: Present: no acute distress, well-nourished - EENT Eyes: Present: PERRL, EOM intact - Neck Neck: Present: supple, normal ROM - Respiratory Respiratory effort: normal Respiratory: bilateral: diminished, negative: rales, rhonchi, wheezing - Cardiovascular Rhythm: regular Heart Sounds: Present: S1 & S2 - Extremities Extremities: no ischemia, No edema - Abdominal General gastrointestinal: Present: soft, non-tender, non-distended - Integumentary Integumentary: Present: clear, warm - Musculoskeletal Musculoskeletal: strength equal bilaterally - Psychiatric Psychiatric: appropriate mood/affect, cooperative - Neurologic Neurologic: CNII-XII intact, moves all extremities Plan Additional Instructions: Patient left AMA Follow up with: CHERYL VASQUES MD [Primary Care Provider] - 3-5 Days
== END 2019-03-01 17:26 | disposition left against medical advice (07) | DRG 308 ==
LOC: ED 08:07 → 4A 11:56
PROVIDERS: ADMIT Internal Medicine; ATTEND Internal Medicine
DX: I47.1 Supraventricular tachycardia (principal); G93.41 Metabolic encephalopathy; E87.1 Hypo-osmolality and hyponatremia; F10.24 Alcohol dependence with alcohol-induced mood disorder; Z68.41 Body mass index [BMI] 40.0-44.9, adult; E87.6 Hypokalemia; E86.0 Dehydration; F17.200 Nicotine dependence, unspecified, uncomplicated; I95.9 Hypotension, unspecified; I10 Essential (primary) hypertension; F10.20 Alcohol dependence, uncomplicated; Y90.0 Blood alcohol level of less than 20 mg/100 ml; K29.00 Acute gastritis without bleeding; D72.818 Other decreased white blood cell count; E66.01 Morbid (severe) obesity due to excess calories; R07.89 Other chest pain; F10.229 Alcohol dependence with intoxication, unspecified; Z82.49 Family history of ischemic heart disease and other diseases of the circulatory system; Z71.41 Alcohol abuse counseling and surveillance of alcoholic; Z71.3 Dietary counseling and surveillance
CPT/HCPCS: 36415; 71045; 71275; 80048; 80053; 80307; 80320; 81001; 82550; 82553; 82962; 83036; 83690; 83735; 83880; 84100; 84439; 84443; 84484; 85025; 85379; 85610; 85730; 93005; 93010; G0378; G0480; J0153; J0360; J0610; J1170; J1650; J2060; J2405; J2765; J2785; J3411; J3475; J7030; J7042; Q9967